=== PATIENT | female | born 1990 | race Caucasian/White ===

== ENCOUNTER → 2021-10-18 11:40 | Observation (INO) ==
[2021-10-17 16:12] LABS: Basophils % 0.2 %; Eosinophils % 0.5 %; Hematocrit 37.7 % (35.3-44.9); Hemoglobin 12.9 g/dL (11.5-15.4); Immature Granulocytes % 0.5 % (0-4); Lymphocytes # 1.1 K/mcL (0.6-4.6); Lymphocytes % 17.8 %; Mean Corpuscular HGB Conc 34.2 g/dL (31.6-35.5); Mean Corpuscular Hemoglobin 31.2 pg (28.0-33.3); Mean Corpuscular Volume 91.3 fL (83.0-100.0); Mean Platelet Volume 8.5 fL (9.4-12.4); Monocytes # 0.3 K/mcL (0.0-1.3); Monocytes % 5.7 %; Neutrophils # 4.5 K/mcL (1.6-8.9); Platelet Count 242 K/mcL (140-400); Red Blood Count 4.13 M/mcL (3.82-4.97); Red Cell Distribution Width 11.4 % (11.5-14.5); Segmented Neutrophils % 75.3 %
[~2021-10-18 11:40] MED LIST: NIFEdipine Immed Rel 10 MG CAPSULE PO SCH; Ringers Solution, Lactated 1,000 ML IVC ONE; Ringers Solution, Lactated 1,000 ML IVC SCH
== END | disposition home or self-care (01) ==
LOC: 1NENUNUR → 1NENULAB
PROVIDERS: ADMIT Student in an Organized Health Care Education/Training Program; ATTEND Student in an Organized Health Care Education/Training Program